=== PATIENT | female | born 1985 | race Caucasian/White ===

== ENCOUNTER 2019-06-02 08:04 | Outpatient (CLI) | payer OTHER ==
--- NOTE | 2019-06-02 09:17 | ULT ---
RIGHT UPPER QUADRANT ULTRASOUND: Indication: Epigastric abdominal pain. FINDINGS: No focal hepatic lesion is evident. Visualized gallbladder, pancreas, and right kidney are normal in appearance. No Marshall's sign is reported. Common bile duct measures 4.4 mm. The right kidney measures 10.6 x 5.4 x 4.3 cm. IMPRESSION: No acute sonographic abnormality within the right upper quadrant. POS: OFF
== END 2019-06-02 08:05 | disposition home or self-care (01) ==
LOC: SCSULT 08:04
PROVIDERS: ATTEND Physician Assistant Medical
DX: K21.9 Gastro-esophageal reflux disease without esophagitis (principal); R10.13 Epigastric pain; R19.4 Change in bowel habit
CPT/HCPCS: 76705